=== PATIENT | male | born 1950 | race Caucasian/White ===

== ENCOUNTER 2017-07-07 07:00 | Observation (INO) | payer OTHER ==
[~2017-07-07] VITALS: Ht 182.9 cm; Wt 95.3 kg
[2017-07-08] MEDS ORDERED: FARXIGA5 M1 PO (15:58)
[2017-07-08] MEDS ORDERED: FENOFIBRATE145 M1 PO (15:58)
[2017-07-08] MEDS ORDERED: ASPIRIN EC81 M1 PO (15:58)
[2017-07-08] MEDS ORDERED: GLIMEPIRIDE2 MG PO ×2 (15:59)
[2017-07-08] MEDS ORDERED: FERROUS SULFAT325 M3 PO (15:59)
[2017-07-08] MEDS ORDERED: MULTIVITAMINS1 EAC9 PO (16:00)
[2017-07-08] MEDS ORDERED: COZAAR50 M1 PO (16:00)
[2017-07-08] MEDS ORDERED: GLUCOPHAGE1000 M1 PO (16:00)
[2017-07-08] MEDS ORDERED: CLOPIDOGREL75 M1 PO (16:01)
[2017-07-08] MEDS ORDERED: CO Q-1010 M1 PO (16:01)
[2017-07-08] MEDS ORDERED: CRESTOR20 M2 PO (16:01)
[2017-07-08] MEDS ORDERED: NEXIUM40 M1 PO (16:01)
[2017-07-08] MEDS ORDERED: STIOLTO RESPIMAT4 GM INH (16:02)
[2017-07-08] MEDS ORDERED: SLOW-MAG71.5 MG PO (16:02)
[2017-07-08] MEDS ORDERED: SAW PALMETTO160 M2 PO (16:03)
[2017-07-08] MEDS ORDERED: VITAMIN E100 UNI2 PO (16:03)
--- NOTE | 2017-07-13 11:52 | Operative Report ---
Operative/Inv Procedure Report Surgery Date: 07/13/17 Name of Procedure: Right common femoral endarterectomy Pre-Operative Diagnosis: severe lifestyle limiting claudication Post-Operative Diagnosis: same Estimated Blood Loss: 50ml to 100ml Surgeon/Hatchery Laborer: Chavez RIVAS,Emmanuel Hatchery Laborer-- Dr. Timur RIVAS Anesthesia: general endotracheal tube Specimens: right common femoral plaque Complications: none Condition: stable, extubated, transferred to pacu Operative Indication: 66 y/o m w/ hx of smoking pad s/p right iliac stenting. noted to have significant common femoral plaque. Pt with claudication can ambulate less than 500 feet. Given common femoral plaque planned to take the patient to the or for right common femoral endarterectomy. Risks/benefits/alternatives of surgery was explained. Informed consent was obtained and placed in the chart. Operative/Procedure Note Note: Pt was brought to the operating room. Dr. govea assisted me with the surgery as there is no resident or PA with adequate experience to assist me. The patient was brought to the operating room and a timeout was done to verify the patient's name date of and MRN. He was placed under general anesthesia in the supine position. 2 g of Ancef were administered prior to skin incision. We then made a vertical incision using a ten blade scalpel over the course of the femoral artery. Loida was used to dissect the subcutaneous tissue. We then identfied the inguinal ligament and used sharp dissection to dissect the proximal common femoral artery. We then circumfentially dissected the artery distally and dissected the profunda and sfa. We continued the dissection proximally and dissected free the cirucmflex branches. There was a soft portion of the artery in the distal external iliac artery that we felt we could clamp. Once we had proximal and distal control with vessel vessel loops the patient was fully heparnized. We then clamped proximally and distally. We made and arteriotomy with an 11 blade scalpel. We used a bernstein to continue the arteriotomy proximally and distally. We then used a freer elevator to perform the endarterectomy. We took care to remove all the free debrie and used heparized saline to confirm this. Once we were satsified with the endarterctomy we used and 8mm x 8cm bovine pericardial patch. We sutured this into place using two 5.0 prolene stiches in running continous fashion. prior to completing the patch it was backbled and flushed. We then placed the remaning stiches. We then released the clamps and obtained hemostasis with gel foam and flow seal. At this time we were satisfied with hemostasis and there was a good femoral pulse. We closed the deep layer with 2.0 vicry. We used 3.0vicryl to close the sub cutaneous and deep dermal layer. Skin was closed with 4.0monocryl. We then placed a sterile dressing. The patient was extubated and trasnfered to the pacu in stable condition. all counts accurate.
[2017-07-13 13:05] LABS: ABSOLUTE BASOPHIL COUNT 0 /CUMM (0.0-0.2); ABSOLUTE EOSINOPHIL COUNT 0.2 /CUMM (0.0-0.7); ABSOLUTE GRANULOCYTE CT 7.6 /CUMM (1.4-6.5); ABSOLUTE LYMPH COUNT 0.9 /CUMM (1.2-3.4); ABSOLUTE MONOCYTE COUNT 0.3 /CUMM (0.10-0.60); BASOPHIL % 0 % (0.0-2.0); EOSINOPHIL % 1.8 % (0-5); HEMATOCRIT 41.5 % (42-52); MEAN CORPUSCULAR HGB 29.8 PG (27.0-31.0); MEAN CORPUSCULAR HGB CONC 33.5 G/DL (33.0-37.0); MEAN CORPUSCULAR VOLUME 88.9 FL (80.0-94.0); MEAN PLATELET VOLUME 7.6 FL (7.4-10.4); PLATELET COUNT 248 /CUMM (130-400); RBC DISTRIBUTION WIDTH 13.5 % (11.5-14.5); RED BLOOD CELL CT 4.66 /CUMM (4.70-6.10); WHITE BLOOD CELL COUNT 8.9 /CUMM (4.8-10.8)
[2017-07-13 13:28] LABS: GRANULOCYTE % 85.4 % (42.2-75.2)
--- NOTE | 2017-07-13 13:41 | Patient Discharge Instructions ---
Discharge Instructions General Discharge Information You were seen/treated for: severe lifestyle limiting claudication You had these procedures: Surgery Date: 07/13/17 Name of Procedure: Right common femoral endarterectomy Watch for these problems: fever>101.3, increased pain, redness/swelling/drainage, prevena wound vac alarm / difficulty Acute Coronary Syndrome Inclusion Criteria At DC or during hospital stay patient has or had the following: ACS DIAGNOSIS No Discharge Core Measures Meds if any: Prescribed or Continued at Discharge Meds if any: NOT Prescribed or Continued at Discharge Congestive Heart Failure Inclusion Criteria At DC or during hospital stay patient has or had the following: CHF DIAGNOSIS No Discharge Core Measures Meds if any: Prescribed or Continued at Discharge Meds if any: NOT Prescribed or Continued at Discharge Cerebrovascular accident Inclusion Criteria At DC or during hospital stay patient has or had the following: CVA/TIA Diagnosis No Discharge Core Measures Meds if any: Prescribed or Continued at Discharge Meds if any: NOT Prescribed or Continued at Discharge Venous thromboembolism Inclusion Criteria VTE Diagnosis No VTE Type NONE VTE Confirmed by (Test) NONE Discharge Core Measures - Per Current guidelines, there needs to be overlap - treatment for the first 5 days of Warfarin therapy. - If discharged on Warfarin prior to 5 days of - overlap therapy, the patient will need to be - assessed for post discharge needs including - *Post discharge parental anticoagulation - *Warfarin and/or parental anticoagulation education - *Follow up date to check INR post discharge At least 5 days overlap therapy as Inpatient No Meds if any: Prescribed or Continued at Discharge Note: Overlap Therapy is Warfarin and Anticoagulant Meds if any: NOT Prescribed or Continued at Discharge
[2017-07-13 13:47] VITALS: BP 158/82
--- NOTE | 2017-07-13 13:47 | Surg Short-stay <48hrs Dis Sum ---
Visit Information Visit Dates Admission Date: 07/13/17 Discharge Date: 07/14/17 Surgical Short Stay DC Summary Admission Diagnosis: severe lifestyle limiting claudication Final Diagnosis: same as above, s/p Surgery Date: 07/13/17 Name of Procedure: Right common femoral endarterectomy Procedure(s): Surgery Date: 07/13/17 Name of Procedure: Right common femoral endarterectomy Summary/Significant Findings: Electively scheduled right common femoral endarterectomy by on 07/13/17 for history of severe lifestyle limiting claudication. Prevena wound vac placed over surgical incision, for continued negative pressure wound management to be continued for the life of the device (7 days) and then discarded. The patient's pre-operitive antiplatelets, aspirin and plavix, were resumed post-operatively. Pain control was transitioned from iv to oral medication. The patient was observed overnight and discharged to home on post-op day#1. Condition at Discharge: stable Discharge Disposition: home or self care Discharge instructions provided to patient/family: Yes Post discharge follow-up plan: follow up with within 7-10 days prevena wound vac device to remain in place for the life of the device (7 days), and then discarded Copies to: Hailey RIVAS,Tenzin Cheek
--- NOTE | 2017-07-13 15:12 | PN- Vascular Surgery ---
Subjective Subjective: POST-OP NOTE Prevena vac arrived to room and placed earlier by , with some expected discomfort. Pain currently controlled. Out of bed to bathroom without difficulty. No dizziness. No shortness of breath. No chest pains. Voided without difficulty. Anticipates discharge to home tomorrow. Objective Vital Signs and I&Os Vital Signs Date Time Temp Pulse Resp B/P B/P Pulse O2 O2 Flow FiO2 Mean Ox Delivery Rate 07/13 1347 98.0 80 18 158/82 93 Room Air Intake & Output 07/13 1600 07/13 0800 07/13 0000 07/12 1600 07/12 0800 07/12 0000 Intake Total 300 Output Total 300 Balance 0 Intake, IV 100 Intake, Oral 200 Number 0 Bowel Movements Output, 0 Drainage Output, Urine 300 Patient 210 lb Weight Physical Exam: General - alert & oriented. comfortable. no acute distress. Lungs - clear bilaterally. no w/r/r. Cardiac - s1s2. reg. Abdomen - soft. nontender. Extremities - warm bilaterally. prevena wound vac in place right groin, which appears to be functioning well. no hematoma noted. nvi distally. palpable pulses b/l lower extremities. Current Medications: Current Medications Sig/Beth Start time Last Medication Dose Route Stop Time Status Admin Acetaminophen 650 MG Q6P PRN 07/13 1400 AC PO Aspirin Buffered 81 MG DAILY 07/14 1000 DC PO Atorvastatin Calcium 80 MG 1700 07/13 1700 DC PO Cefazolin Sodium 2 GM IQ8 07/13 1600 AC N/A 1 UNIT IV 07/14 0029 Clopidogrel Bisulfate 75 MG DAILY 07/14 1000 DC PO Dextrose/Water 1,000 ML .Q20H 07/13 1400 AC 07/13 IV 1436 Fenofibrate 145 MG DAILY 07/14 1000 DC PO Ferrous Sulfate 325 MG DAILY 07/14 1000 DC PO Glimepiride 4 MG QAM 07/14 1000 DC PO Glimepiride 2 MG QPM 07/13 2200 DC PO Insulin Human Regular 0 TIDAC/HS 07/13 1700 AC SC Losartan Potassium 50 MG DAILY 07/14 1000 DC PO Magnesium Chloride 128 MG DAILY 07/14 1000 DC PO Morphine Sulfate 4 MG Q2P PRN 07/13 1400 AC IV Multivitamins 1 TAB DAILY 07/14 1000 DC Therapeutic PO Omeprazole 40 MG DAILY AC 07/14 0700 DC PO Ondansetron HCl 4 MG Q6P PRN 07/13 1400 AC IV Oxycodone/ 1 TAB Q4P PRN 07/13 1400 AC Acetaminophen PO Oxycodone/ 2 TAB Q4P PRN 07/13 1400 AC 07/13 Acetaminophen PO 1449 Promethazine HCl 12.5 MG Q6P PRN 07/13 1400 AC IV 07/20 1229 Tiotropium [place] 1 PUF DAILY 07/14 1000 DC INH Results Last 48 Hours of Labs: Laboratory Tests 07/13 1255 Chemistry Sodium (137 - 145 mmol/L) 139 Potassium (3.5 - 5.1 mmol/L) 5.0 Chloride (98 - 107 mmol/L) 103 Carbon Dioxide (22 - 30 mmol/L) 25 Anion Gap (5 - 16) 12 BUN (9 - 20 mg/dL) 22 H Creatinine (0.7 - 1.2 mg/dL) 1.0 Estimated GFR (>60 ml/min) > 60 BUN/Creatinine Ratio (7 - 25 %) 22.0 Hematology CBC w Diff NO MAN DIFF REQ WBC (4.8 - 10.8 /CUMM) 8.9 RBC (4.70 - 6.10 /CUMM) 4.66 L Hgb (14.0 - 18.0 G/DL) 13.9 L Hct (42 - 52 %) 41.5 L MCV (80.0 - 94.0 FL) 88.9 MCH (27.0 - 31.0 PG) 29.8 RDW (11.5 - 14.5 %) 13.5 Plt Count (130 - 400 /CUMM) 248 MPV (7.4 - 10.4 FL) 7.6 Gran % (42.2 - 75.2 %) 85.4 H Lymphocytes % (20.5 - 51.1 %) 9.9 L Monocytes % (1.7 - 9.3 %) 2.9 Eosinophils % (0 - 5 %) 1.8 Basophils % (0.0 - 2.0 %) 0 Absolute Granulocytes (1.4 - 6.5 /CUMM) 7.6 H Absolute Lymphocytes (1.2 - 3.4 /CUMM) 0.9 L Absolute Monocytes (0.10 - 0.60 /CUMM) 0.3 Absolute Eosinophils (0.0 - 0.7 /CUMM) 0.2 Absolute Basophils (0.0 - 0.2 /CUMM) 0 PUBS MCHC (33.0 - 37.0 G/DL) 33.5 Assessment/Plan Assessment/Plan This 66 year old male with hx htn, hld, copd, gerd, pad with severe lifestyle limiting claudication, is POD#0 s/p right common femoral endarterectomy, and placement of prevena wound vac diabetic diet as tolerated pain control as ordered continue asa / plavix garcia-operative ancef x 2 doses home meds resumed oob as desired neurovascular checks f/u am labs likely d/c home tomorrow with prevena wound vac (portable, disposable 7 day vac device) will d/w Core Measures Venous Thromboembolism VTE Risk Factors Surgery No Mechanical VTE Prophylaxis d/t N/A MechProphylax Ordered No VTE Pharm Prophylaxis d/t NA PharmProphylax ordered
[2017-07-13] MEDS ORDERED: COLACE100 M1 PO (15:19)
[2017-07-13] MEDS ORDERED: PERCOCET 5-3251 EACH PO (15:19)
--- NOTE | 2017-07-13 15:23 | Admission Core Measures ---
Acute Coronary Syndrome (CM) ACS Core Measures Acute Coronary Syndrome Diagnosis No Congestive Heart Failure (NEW) CHF Core Measures Congestive Heart Failure Diagnosis No Cerebrovascular Accident (NEW) CVA Core Measures CVA/TIA Diagnosis No Venous Thromboembolism VTE Core Omar (View Protocol) VTE Risk Factors Surgery No Mechanical VTE Prophylaxis d/t N/A MechProphylax Ordered No VTE Pharm Prophylaxis d/t NA PharmProphylax ordered Problem List As ranked by this Provider includes Assessment & Plan 1. H/O endarterectomy HOME MEDS Home Med List Aspirin (Ecotrin*) 81 MG TABLET.DR 1 TAB PO DAILY HEART/BLOOD (Reported) Clopidogrel Bisulfate (Clopidogrel) 75 MG TABLET 1 TAB PO DAILY BLOOD THINNER (Reported) Dapagliflozin Propanediol (Farxiga) 5 MG TABLET 1 TAB PO BID DM (Reported) Docusate Sodium (Colace) 100 MG CAPSULE 1 CAP PO BID PRN CONSTIPATION Esomeprazole (Nexium) 40 MG CAPSULE.DR 1 CAP PO DAILY GI (Reported) Fenofibrate Nanocrystallized (Fenofibrate) 145 MG TABLET 1 TAB PO DAILY CHOLESTEROL/TRIGLYCERIDES (Reported) Ferrous Sulfate 325 MG (65 MG IRON) TABLET 1 TAB PO DAILY SUPPLEMENT ( Reported) Glimepiride 2 MG TABLET 2 TAB PO QAM DM (Reported) Glimepiride 2 MG TABLET 1 TAB PO QPM DM (Reported) Losartan Potassium (Cozaar) 50 MG TABLET 1 TAB PO DAILY HEART/BP (Reported) Magnesium Chloride (Slow-Mag) 71.5 MG TABLET.DR 2 TAB PO DAILY SUPPLEMENT ( Reported) Metformin HCl (Glucophage) 1,000 MG TABLET 1 TAB PO BID DM (Reported) Multiple Vitamin (Multivitamins) 1 EACH TABLET 1 TAB PO DAILY SUPPLEMENT ( Reported) Oxycodone HCl/Acetaminophen (Percocet 5-325 MG Tablet) 5 MG-325 MG TABLET 1-2 TAB PO Q4-6 PRN PRN pain control Rosuvastatin Calcium (Crestor) 20 MG TABLET 1 TAB PO DAILY CHOLESTEROL ( Reported) [place] (Unknown Strength) CAPSULE (Unknown Dose) PO DAILY SUPPLEMENT ( Reported) Tiotropium Br/Olodaterol HCl (Stiolto Respimat Inhal [place]) 2.5 MCG-2.5 MCG/ ACTUATION MIST.INHAL 2 PUFF INH QAM COPD (Reported) Ubidecarenone (Co Q-10) (Unknown Strength) CAPSULE (Unknown Dose) PO DAILY SUPPLEMENT (Reported) Vitamin E Mixed (Vitamin E) (Unknown Strength) TABLET (Unknown Dose) PO DAILY SUPPLEMENT (Reported)
[2017-07-13 16:00] VITALS: BP 158/80
[2017-07-13 18:00] VITALS: BP 140/80
[2017-07-13 20:00] VITALS: BP 142/82
[2017-07-13 23:59] VITALS: BP 132/78
[2017-07-14 03:34] VITALS: BP 142/78
--- NOTE | 2017-07-14 07:41 | PN- Vascular Surgery ---
See Addendum Subjective Subjective: No issues overnight. Out of bed without difficulty to bathroom. No dizziness. No shortness of breath. No chest pains. Voiding well. Prevena wound vac in place. Anticipates discharge to home today. Objective Vital Signs and I&Os Vital Signs Date Time Temp Pulse Resp B/P B/P Pulse O2 O2 Flow FiO2 Mean Ox Delivery Rate 07/14 0334 98.2 76 22 142/78 96 Room Air 07/13 2359 98.0 71 20 132/78 94 Room Air 07/13 2000 98.0 82 18 142/82 93 Room Air 07/13 1800 98.2 82 18 140/80 93 Room Air 07/13 1600 98.1 80 18 158/80 93 Room Air 07/13 1347 98.0 80 18 158/82 93 Room Air Intake & Output 07/14 0800 07/14 0000 07/13 1600 07/13 0800 07/13 0000 07/12 1600 Intake Total 480 390 300 Output Total 600 800 300 Balance -120 -410 0 Intake, IV 150 100 Intake, Oral 480 240 200 Number 0 Bowel Movements Output, 0 Drainage Output, Urine 600 800 300 Patient 210 lb Weight Physical Exam: General - alert & oriented x 3. comfortable. no acute distress. Lungs - clear bilaterally. no w/r/r. Cardiac - s1s2. reg. Abdomen - soft. nontender. Extremities - warm bilaterally. prevena wound vac in place to right groin, functioning as expected. no hematoma noted. palpable PT b/l. sensation grossly equal. nvi. Current Medications: Current Medications Sig/Beth Start time Last Medication Dose Route Stop Time Status Admin Acetaminophen 650 MG Q6P PRN 07/13 1400 AC PO Acetaminophen 1,000 MG .STK-MED ONE 07/13 0945 DC IV 07/13 0946 Aspirin Buffered 81 MG DAILY 07/14 1000 DC PO Aspirin Buffered 81 MG DAILY 07/14 1000 AC PO Atorvastatin Calcium 80 MG 1700 07/13 1700 DC PO Atorvastatin Calcium 80 MG 1700 07/13 1700 AC 07/13 PO 1732 Cefazolin Sodium 2 GM IQ8 07/13 1600 DC 07/13 N/A 1 UNIT IV 07/14 0029 2301 Clopidogrel Bisulfate 75 MG DAILY 07/14 1000 DC PO Clopidogrel Bisulfate 75 MG DAILY 07/14 1000 AC PO Dextrose/Water 1,000 ML .Q20H 07/13 1400 DC 07/13 IV 1436 Fenofibrate 145 MG DAILY 07/14 1000 DC PO Fenofibrate 145 MG DAILY 07/14 1000 AC PO Fentanyl Citrate 250 MCG .STK-MED ONE 07/13 0945 DC IM 07/13 0946 Fentanyl Citrate 250 MCG .STK-MED ONE 07/13 0807 DC IM 07/13 0808 Ferrous Sulfate 325 MG DAILY 07/14 1000 DC PO Ferrous Sulfate 325 MG DAILY 07/14 1000 AC PO Glimepiride 4 MG QAM 07/14 1000 DC PO Glimepiride 4 MG QAM 07/14 1000 AC PO Glimepiride 2 MG QPM 07/13 2200 DC PO Glimepiride 2 MG QPM 07/13 2200 AC 07/13 PO 2100 Hydromorphone HCl 2 MG .STK-MED ONE 07/13 1217 DC IM 07/13 1218 Hydromorphone HCl 2 MG .STK-MED ONE 07/13 0945 DC IM 07/13 0946 Insulin Aspart 0 TIDAC 07/13 1700 AC 07/13 SC 1732 Insulin Human Regular 0 TIDAC/HS 07/13 1700 DC SC Losartan Potassium 50 MG DAILY 07/14 1000 DC PO Losartan Potassium 50 MG DAILY 07/14 1000 AC PO Magnesium Chloride 128 MG DAILY 07/14 1000 DC PO Magnesium Chloride 128 MG DAILY 07/14 1000 AC PO Midazolam HCl 2 MG .STK-MED ONE 07/13 0807 DC IM 07/13 0808 Morphine Sulfate 4 MG Q2P PRN 07/13 1400 AC IV Multivitamins 1 TAB DAILY 07/14 1000 DC Therapeutic PO Multivitamins 1 TAB DAILY 07/14 1000 AC Therapeutic PO Omeprazole 40 MG DAILY AC 07/14 0700 DC PO Omeprazole 40 MG DAILY AC 07/14 0700 AC 07/14 PO 0529 Ondansetron HCl 4 MG Q6P PRN 07/13 1400 AC IV Oxycodone/ 1 TAB Q4P PRN 07/13 1400 AC Acetaminophen PO Oxycodone/ 2 TAB Q4P PRN 07/13 1400 AC 07/14 Acetaminophen PO 0728 Promethazine HCl 12.5 MG Q6P PRN 07/13 1400 AC IV 07/20 1229 Tiotropium [place] 1 PUF DAILY 07/14 1000 DC INH Tiotropium [place] 1 PUF DAILY 07/14 1000 AC INH Results Last 48 Hours of Labs: Laboratory Tests 07/14 07/13 0643 1255 Chemistry Sodium (137 - 145 mmol/L) Pending 139 Potassium (3.5 - 5.1 mmol/L) Pending 5.0 Chloride (98 - 107 mmol/L) Pending 103 Carbon Dioxide (22 - 30 mmol/L) Pending 25 Anion Gap (5 - 16) Pending 12 BUN (9 - 20 mg/dL) Pending 22 H Creatinine (0.7 - 1.2 mg/dL) Pending 1.0 Estimated GFR (>60 ml/min) > 60 BUN/Creatinine Ratio (7 - 25 %) Pending 22.0 Hematology CBC w Diff Pending NO MAN DIFF REQ WBC (4.8 - 10.8 /CUMM) Pending 8.9 RBC (4.70 - 6.10 /CUMM) Pending 4.66 L Hgb (14.0 - 18.0 G/DL) Pending 13.9 L Hct (42 - 52 %) Pending 41.5 L MCV (80.0 - 94.0 FL) Pending 88.9 MCH (27.0 - 31.0 PG) Pending 29.8 RDW (11.5 - 14.5 %) Pending 13.5 Plt Count (130 - 400 /CUMM) Pending 248 MPV (7.4 - 10.4 FL) Pending 7.6 Gran % (42.2 - 75.2 %) 85.4 H Lymphocytes % (20.5 - 51.1 %) 9.9 L Monocytes % (1.7 - 9.3 %) 2.9 Eosinophils % (0 - 5 %) 1.8 Basophils % (0.0 - 2.0 %) 0 Absolute Granulocytes (1.4 - 6.5 /CUMM) 7.6 H Absolute Lymphocytes (1.2 - 3.4 /CUMM) 0.9 L Absolute Monocytes (0.10 - 0.60 /CUMM) 0.3 Absolute Eosinophils (0.0 - 0.7 /CUMM) 0.2 Absolute Basophils (0.0 - 0.2 /CUMM) 0 PUBS MCHC (33.0 - 37.0 G/DL) Pending 33.5 Assessment/Plan Assessment/Plan This 66 year old male with hx htn, hld, copd, gerd, pad with severe lifestyle limiting claudication, is POD#1 s/p right common femoral endarterectomy, and placement of prevena wound vac tolerating diabetic diet. d/c iv fluids pain control as ordered continue asa / plavix garcia-operative ancef complete home meds resumed oob as desired neurovascular checks f/u am labs d/c home today with prevena wound vac (portable, disposable 7 day vac device) will d/w Core Measures Venous Thromboembolism VTE Risk Factors Surgery No Mechanical VTE Prophylaxis d/t N/A MechProphylax Ordered No VTE Pharm Prophylaxis d/t NA PharmProphylax ordered
[2017-07-14 08:13] LABS: ABSOLUTE BASOPHIL COUNT 0 /CUMM (0.0-0.2); ABSOLUTE EOSINOPHIL COUNT 0.2 /CUMM (0.0-0.7); ABSOLUTE GRANULOCYTE CT 6.8 /CUMM (1.4-6.5); ABSOLUTE LYMPH COUNT 1.6 /CUMM (1.2-3.4); ABSOLUTE MONOCYTE COUNT 0.7 /CUMM (0.10-0.60); BASOPHIL % 0.4 % (0.0-2.0); EOSINOPHIL % 1.8 % (0-5); GRANULOCYTE % 73.1 % (42.2-75.2); HEMATOCRIT 40.2 % (42-52); MEAN CORPUSCULAR HGB 29.8 PG (27.0-31.0); MEAN CORPUSCULAR HGB CONC 33.5 G/DL (33.0-37.0); MEAN CORPUSCULAR VOLUME 88.9 FL (80.0-94.0); MEAN PLATELET VOLUME 8.1 FL (7.4-10.4); PLATELET COUNT 239 /CUMM (130-400); RBC DISTRIBUTION WIDTH 13.6 % (11.5-14.5); RED BLOOD CELL CT 4.52 /CUMM (4.70-6.10); WHITE BLOOD CELL COUNT 9.3 /CUMM (4.8-10.8)
[2017-07-14 09:43] VITALS: BP 146/88
--- NOTE | 2017-07-14 11:29 | PN- Vascular Surgery ---
Subjective Subjective: s/p right femoral endarterctomy. Groin soft. foot wwp. walking. eating. Review of Systems: denies significant pain Objective Vital Signs and I&Os Vital Signs Date Time Temp Pulse Resp B/P B/P Pulse O2 O2 Flow FiO2 Mean Ox Delivery Rate 07/14 1055 Room Air Room Air 07/14 0943 67 146/88 07/14 0334 98.2 76 22 142/78 96 Room Air 07/13 2359 98.0 71 20 132/78 94 Room Air 07/13 2000 98.0 82 18 142/82 93 Room Air 07/13 1800 98.2 82 18 140/80 93 Room Air 07/13 1600 98.1 80 18 158/80 93 Room Air 07/13 1347 98.0 80 18 158/82 93 Room Air Intake & Output 07/14 1600 07/14 0800 07/14 0000 07/13 1600 07/13 0800 07/13 0000 Intake Total 480 390 300 Output Total 600 800 300 Balance -120 -410 0 Intake, IV 150 100 Intake, Oral 480 240 200 Number 0 Bowel Movements Output, 0 Drainage Output, Urine 600 800 300 Patient 210 lb Weight Assessment/Plan Assessment/Plan s/p right femoral endartrectomy. dc home. continue pravena for 1 week. see me in office next wednesday for removal continue asa/plavix. Core Measures Venous Thromboembolism VTE Risk Factors Surgery No Mechanical VTE Prophylaxis d/t N/A MechProphylax Ordered No VTE Pharm Prophylaxis d/t NA PharmProphylax ordered
== END 2017-07-14 12:35 ==
LOC: 2NB 07-13 01:38 → SDA 07-13 01:38 → ENRESERV 07-13 12:06 → ENTRNSPT 07-13 13:26 → EDTRNSPTSTS 07-13 13:31 → EDTRNSPT 07-13 13:31 → 2NB 07-13 13:39 → CMPTRNSPT 07-13 13:52 → ENPENDDIS 07-14 07:58 → 2NB 07-14 10:19 → ENTRNSPT 07-14 12:16 → EDTRNSPT 07-14 12:31 → EDTRNSPTSTS 07-14 12:31 → 2NB 07-14 12:35 → CMPTRNSPT 07-14 12:58
PROVIDERS: Physician Assistant Surgical; Surgery Vascular Surgery
DX: I70.211 Atherosclerosis of native arteries of extremities with intermittent claudication, right leg (principal); I10 Essential (primary) hypertension; J44.9 Chronic obstructive pulmonary disease, unspecified; K21.9 Gastro-esophageal reflux disease without esophagitis; E11.9 Type 2 diabetes mellitus without complications; Z79.84 Long term (current) use of oral hypoglycemic drugs; Z79.82 Long term (current) use of aspirin; F17.210 Nicotine dependence, cigarettes, uncomplicated
CPT/HCPCS: 2NBP; 6040; 36415; 82436; 96374; 96376; G0378; J0131; J0690; J1644; J2550; J3490; J7060